=== PATIENT | male | born 1985 | race Two or more races ===

== ENCOUNTER 2022-08-07 11:28 | Emergency (ER) | payer OTHER ==
[~2022-08-07] VITALS: Ht 170.2 cm; Wt 61.2 kg
[2022-08-07 11:34] VITALS: BP 143/86
[2022-08-07] MEDS ORDERED: KETOROLAC 60 MG/2 ML VIAL IM ONE (11:50)
--- NOTE | 2022-08-07 11:57 | NUR ---
PT AMBULATED TO ER BED 6
--- NOTE | 2022-08-07 12:16 | NUR ---
ASSUMED PATIENT CARE, NURSING ASSESSMENT COMPLETED.
--- NOTE | 2022-08-07 12:16 | NUR ---
SEEN AND EVALUATED BY , MSE COMPLETED.
[2022-08-07 12:25] VITALS: BP 143/86
--- NOTE | 2022-08-07 12:26 | NUR ---
DISPO AND MEDICAL DECISION MAKING, DC HOME WITH AFTERCARE INSTRUCTIONS. ALL INSTRUCTIONS UNDERSTOOD BY PATIENT WELL, VS WNL. DENIES CP.
== END 2022-08-07 12:25 | disposition home or self-care (01) ==
LOC: MED 11:28
DX: R07.89 Other chest pain (principal)
CPT/HCPCS: 93005; 96372; 99283; J1885

== ENCOUNTER 2022-08-14 03:29 | Emergency (ER) | payer OTHER ==
[~2022-08-14] VITALS: Ht 170.2 cm; Wt 105.2 kg
[2022-08-14 03:30] VITALS: BP 150/90
--- NOTE | 2022-08-14 03:33 | NUR ---
to lobby a/w bed ambulatory
[2022-08-14] MEDS ORDERED: ATA25 PO (06:37)
--- NOTE | 2022-08-14 06:47 | NUR ---
PT TAKEN TO CT
--- NOTE | 2022-08-14 06:54 | NUR ---
PT RETURN FROM CT
--- NOTE | 2022-08-14 07:23 | NUR ---
C/O DIARRHEA X TWICE, 2/10 RIGHT FOOT, RIGHT HAND PAIN X TODAY.
[2022-08-14 07:43] LABS: BASOPHILS # (AUTO) 0.1 K/uL (0.00-0.22); BASOPHILS % (AUTO) 0.8 % (0.0-2.0); EOSINOPHILS # (AUTO) 0.2 K/uL (0-0.4); HEMOGLOBIN 14.8 g/dL (12.0-18.0); LYMPHOCYTES % (AUTO) 25.2 % (20.5-51.1); MEAN CORPUSCULAR HEMOGLOBIN 28 pg (27-31); MEAN CORPUSCULAR HGB CONC 35 g/dL (33-37); MEAN CORPUSCULAR VOLUME 81.7 fL (80-94); MONOCYTES # (AUTO) 0.6 K/uL (0.8-1.0); MONOCYTES % (AUTO) 7.6 % (1.7-9.3); NEUTROPHILS # (AUTO) 5.1 K/uL (1.8-7.7); NEUTROPHILS % (AUTO) 64.4 % (42.2-75.2); PLATELET COUNT (AUTO) 312 K/uL (140-450); RED BLOOD CELL COUNT(AUTO) 5.27 MIL/uL (4.20-6.10); RED CELL DISTRIBUTION WIDTH 13.5 % (11.6-13.7); WHITE BLOOD COUNT (AUTO) 7.9 K/uL (4.8-10.8)
[2022-08-14 08:10] LABS: ALBUMIN 4.4 g/dL (3.4-5.0); ANION GAP 14.1 (8-16); ASPARTATE AMINOTRANSFERASE 22 U/L (15-37); CARBON DIOXIDE 28.8 mmol/L (21-32); CHLORIDE 99 mmol/L (98-107); CREATININE 0.9 mg/dL (0.6-1.3); GFR ARICAN-AMERICAN 122 mL/min (>90); GLUCOSE 102 mg/dL (74-106); POTASSIUM 3.9 mmol/L (3.5-5.1); SODIUM SERUM 138 mmol/L (136-145); TOTAL BILIRUBIN 0.4 mg/dL (0.0-1.0); UREA NITROGEN, BLOOD 15 mg/dL (7-18)
[2022-08-14 09:07] VITALS: BP 152/86
== END 2022-08-14 09:06 | disposition home or self-care (01) ==
LOC: MED 03:29
DX: R20.0 Anesthesia of skin (principal); Z79.899 Other long term (current) drug therapy
CPT/HCPCS: 36415; 70450; 80053; 84484; 85025; 93005; 99285